=== PATIENT | female | born 1945 | race Caucasian/White ===

== ENCOUNTER 2017-06-14 14:17 | Emergency (ER) | payer OTHER, MEDICAID ==
[~2017-06-14] VITALS: Ht 154.9 cm; Wt 55.0 kg
[2017-06-14 14:51] VITALS: BP 113/57; PULSE 97; RESP 18; TEMP 99; O2SAT 96
[2017-06-14] MEDS ORDERED: AMLO5TAB2 PO (15:33)
[2017-06-14] MEDS ORDERED: TRIA1CAP6 PO (15:33)
[2017-06-14] MEDS ORDERED: LEXA10TA PO (15:36)
[2017-06-14] MEDS ORDERED: OMEP20TA93 PO (15:36)
[2017-06-14] MEDS ORDERED: ATOR20TA15 PO (15:36)
--- NOTE | 2017-06-14 15:45 | PD ---
HPI Chief Complaint: Psychiatric Symptoms Time Seen by Provider: 14:47 Travel History International Travel<30 days: No Contact w/Intl Traveler<30days: No Traveled to known affect area: No History of Present Illness HPI 72-year-old female presents under Renee act after making suicidal statements with social security dispatcher, per delores Johnston enforcement report. The report also states she suicidal because her last year and the patient is intoxicated. Patient reports daily alcohol use. She reports drinking wine today. She doesn't recall the statements made. She denies suicidal or homicidal ideation. Denies auditory or visual hallucinations. Denies illicit drug use. Denies tobacco use. Has no emergent medical complaints. Denies chest pain, shortness of breath, abdominal pain, vomiting, change in urine or stool. Her son lives here in [facility] and has him for support. No known relieving or aggravating factors. History of hypertension and GI issues. No other modifying factors or associated signs and symptoms. PFSH Past Medical History Asthma: No Blood Disorders: No Depression: Yes Cancer: No COPD: No Diminished Hearing: Yes Endocrine: No Gastrointestinal Disorders: Yes (colitis, hiatal hernia) GERD: Yes Genitourinary: No Hypertension: Yes Musculoskeletal: Yes (scoliosis) Neurologic: No Respiratory: No Influenza Vaccination: No Menopausal: Yes Past Surgical History Eye Surgery: Yes (cataract) Social History Alcohol Use: Yes (bottle of wine and some vodka each day) Tobacco Use: No Substance Use: No Allergies-Medications (Allergen,Severity, Reaction): Coded Allergies: No Known Allergies (Verified Allergy, Severe, 09/29/04) Reported Meds & Prescriptions Reported Meds & Active Scripts Active Reported Lexapro (Escitalopram Oxalate) 10 Mg Tab 10 Mg PO DAILY Omeprazole 20 Mg Tab 20 Mg PO DAILY Atorvastatin (Atorvastatin Calcium) 20 Mg Tab 20 Mg PO HS Dyrenium (Triamterene) 50 Mg Cap 50 Mg PO DAILY Amlodipine (Amlodipine Besylate) 5 Mg Tab 5 Mg PO DAILY Review of Systems Except as stated in HPI: all other systems reviewed are Neg Physical Exam Narrative GENERAL: Well-nourished, well-developed elderly, female patient, in no acute distress SKIN: Warm and dry. HEAD: Atraumatic. Normocephalic. EYES: Pupils equal and round. ENT: Mucosa pink and moist. NECK: Supple. Trachea midline. CARDIOVASCULAR: Regular rate and rhythm. No murmur appreciated. RESPIRATORY: No accessory muscle use. Clear to auscultation. Breath sounds equal bilaterally. GASTROINTESTINAL: Abdomen soft, non-tender, nondistended. Hepatic and splenic margins not palpable. Bowel sounds are active 4 quadrants. MUSCULOSKELETAL: No obvious deformities. No clubbing. No cyanosis. No edema. BACK: No CVA tenderness. NEUROLOGICAL: Awake and alert. Oriented 3. No obvious cranial nerve deficits. Motor grossly within normal limits. Normal speech. Moves all extremities. 5/5 strength to all extremities. PSYCHIATRIC: No delusional thought processes. No hallucinations. Data Data Last Documented VS Vital Signs Date Time Temp Pulse Resp B/P (MAP) Pulse Ox O2 Delivery O2 Flow Rate FiO2 06/14/17 15:04 (75) 06/14/17 14:51 99.0 97 18 96 Room Air Orders Orders Complete Blood Count With Diff (06/14/17 14:44) Comprehensive Metabolic Panel (06/14/17 14:44) Psych Screen (06/14/17 14:44) Drug Screen, Random Urine (06/14/17 14:44) Alcohol (Ethanol) (06/14/17 14:44) Salicylates (Aspirin) (06/14/17 14:44) Tylenol (Acetaminophen) (06/14/17 14:44) Urinalysis - C+S If Indicated (06/14/17 14:45) Diet Regular Basic (06/14/17 Dinner) MDM Medical Decision Making Medical Screen Exam Complete: Yes Emergency Medical Condition: Yes Medical Record Reviewed: Yes Differential Diagnosis Suicidal ideation, depression, alcohol intoxication, alcohol abuse, alcohol dependence, medical clearance for psychiatric evaluation Narrative Course Patient presents under a Renee act. Physical examination and vital signs are essentially unremarkable. Patient has no medical complaints to report. Psych screen has been ordered. If the laboratory results are unremarkable, the patient will be medically cleared for psychiatric evaluation and disposition. Diagnosis Primary Impression: Medical clearance for psychiatric admission Condition: Stable Gema Murillo Jun 14, 2017 15:45
[2017-06-14 16:09] LABS: AUTOMATED NEUTROPHIL # 6.1 TH/MM3 (1.8-7.7); BASOPHIL % 0.3 % (0.0-2.0); EOSINOPHIL % 0.6 % (0.0-4.0); HEMATOCRIT 34.5 % (35.0-46.0); HEMO FLAGS DIFF FINAL; LYMPH % 12.1 % (9.0-44.0); LYMPHOCYTE # 0.9 TH/MM3 (1.0-4.8); MEAN CELL VOLUME 79.7 FL (80.0-100.0); MEAN CORPUSCULAR HEMOGLOBIN 25.7 PG (27.0-34.0); MEAN CORPUSCULAR HGB CONC 32.3 % (32.0-36.0); MONO % 9.4 % (0.0-8.0); NEUT % 77.6 % (16.0-70.0); PLATELET COUNT 323 TH/MM3 (150-450); RED BLOOD COUNT 4.33 MIL/MM3 (4.00-5.30); RED CELL DISTRIBUTION WIDTH 18.9 % (11.6-17.2); WHITE BLOOD COUNT 7.8 TH/MM3 (4.0-11.0)
[2017-06-14 16:17] LABS: BLOOD, URINE NEG (NEG); COMMENT (UR) CULT NOT INDICATED; CULTURE IF INDICATED CULT NOT INDICATED; GLUCOSE,URINE NEG (NEG); HYALINE CAST, URINE 4 /lpf (RARE); KETONE, URINE NEG (NEG); NITRITE,URINE NEG (NEG); SQUAMOUS EPITHELIAL CELL URINE <1 /hpf (0-5); URINE COLOR LIGHT-YELLOW (YELLW/STRAW)
[2017-06-14 16:35] LABS: ANION GAP 7 MEQ/L (5-15); AST (GOT) 15 U/L (15-37); BICARBONATE 28.4 MEQ/L (21.0-32.0); BLOOD UREA NITROGEN 8 MG/DL (7-18); CHLORIDE 102 MEQ/L (98-107); GLOMERULAR FILTRATION RATE 62 ML/MIN (>89); POTASSIUM 3.4 MEQ/L (3.5-5.1); SODIUM (NA) 137 MEQ/L (136-145)
[2017-06-14 16:38] LABS: ALCOHOL 75 MG/DL (0-5); ALKALINE PHOSPHATASE 78 U/L (45-117); ALT (GPT) 23 U/L (10-53); TOTAL BILIRUBIN ADULT 0.6 MG/DL (0.2-1.0)
[2017-06-14 16:54] LABS: ACETAMINOPHEN LESS THAN 2.0 MCG/ML (10.0-30.0)
[2017-06-14 18:38] VITALS: BP 141/64; PULSE 94; RESP 18; O2SAT 96
[2017-06-14 22:00] VITALS: BP 146/70; PULSE 88; RESP 16; TEMP 99.2; O2SAT 95
--- NOTE | 2017-06-14 22:39 | PD ---
History of Present Illness Chief Complaint: Psychiatric Symptoms Time Seen by Provider: 22:00 Travel History International Travel<30 Days: No Contact w/Intl Traveler<30days: No Known affected area: No Legal Status Legal Status: Renee Act Renee Act Signed By: Negro Hamilton History of Present Illness: History of Present Illness HPI 72-year-old female who presents under Renee act initiated by law enforcement. The Renee act alleges that the patient made suicidal statements to a Social financial aids officer while they were talking on the telephone. When the officer arrived at her house he found her to be intoxicated. The patient on arrival to the ED had a blood alcohol level of 75. She was monitored in secure environment and presented no behavioral concerns and no suicidality. Electronic medical record is reviewed. The patient has one previous admission to the psychiatric unit in 2004. At that time she was placed under Renee act and was intoxicated as well. Patient is seen and examined. She is alert, oriented, calm and cooperative female dressed in [facility] with appropriate hygiene. She is clinically sober. Her gait is stable, there is no tremors or any other signs of withdrawal. Her speech is clear, goal-directed. There is no psychosis, no edith or hypomania. She tells me she has been feeling depressed since her approximately 1 year ago. Patient reports fair sleep, fair appetite, feeling level of energy. She denies any suicidal or homicidal ideation, intent or plan. She moved to a new neighborhood and has no friends there. She is also experiencing financial stress due to being unable to claim benefits from the Social Security office. She has lost her immigration papers and therefore has had to hire a project administrator to help her in this process. Patient admits that she had been drinking and reports that she drinks about 3 times per week and usually finishes a bottle of wine. She had been sober for the last 15 months and had been active in AA. With the patient's verbal consent to have contacted her son Mr. Dwight Metzger at [phone]. He confirms that information that the patient has provided. He has no concerns if his mother were to be discharge. PFSH Past Medical History Asthma: No Blood Disorders: No Depression: Yes Cancer: No COPD: No Diminished Hearing: Yes Endocrine: No Gastrointestinal Disorders: Yes (colitis, hiatal hernia) GERD: Yes Genitourinary: No Hypertension: Yes Musculoskeletal: Yes (scoliosis) Neurologic: No Respiratory: No Influenza Vaccination: No Menopausal: Yes Past Surgical History Eye Surgery: Yes (cataract) Psychiatric History Psychiatric History Hx Psychiatric Treatment: 1 previous psychiatric admission at [facility] in 2004. Patient has also been to [facility] under a Renee act. Currently patient is taking antidepressant medication. History of Inpatient Treatment: Yes ([facility] and [facility]) Social History Hx Alcohol Use: Yes (bottle of wine and some vodka each day) Hx Tobacco Use: No Hx Substance Use: No Substance Use Type: Alcohol Hx of Substance Use Treatment: Yes (patient reports she has been active in for several years.) Family Psychiatric History Patient reports she has a positive history of alcoholism both on her father's and mother's side. Allergies-Medications (Allergen,Severity, Reaction): Coded Allergies: No Known Allergies (Verified Allergy, Severe, 09/29/04) Reported Meds & Prescriptions Reported Meds & Active Scripts Active Reported Lexapro (Escitalopram Oxalate) 10 Mg Tab 10 Mg PO DAILY Omeprazole 20 Mg Tab 20 Mg PO DAILY Atorvastatin (Atorvastatin Calcium) 20 Mg Tab 20 Mg PO HS Dyrenium (Triamterene) 50 Mg Cap 50 Mg PO DAILY Amlodipine (Amlodipine Besylate) 5 Mg Tab 5 Mg PO DAILY Review of Systems Psychiatric: COMPLAINS OF: Depression Mental Status Examination Appearance: Appropriate Consciousness: Alert Orientation: x4 Motor Activity: Normal gait Speech: Unremarkable Language: Adequate Fund of Knowledge: Adequate Attention and Concentration: Adequate Memory: Unremarkable Mood: Appropriate Affect: Appropriate Thought Process & Associations: Intact Thought Content: Appropriate Hallucination Type: None Delusion Type: None Suicidal Ideation: No Suicidal Plan: No Suicidal Intention: No Homicidal Ideation: No Homicidal Plan: No Homicidal Intention: No Insight: Adequate Judgment: Adequate [facility] Medical Decision Making Assessment/Plan 72-year-old female with history of alcohol abuse and depression who presents to [facility] under a Renee act initiated by law enforcement. The report alleges that while having a conversation with an officer from the Social Security office she verbalized suicidal ideation. The patient denies any current suicidal or homicidal ideation, intent or plan. She denies remembering that she said anything about wanting to hurt herself. She acknowledges she is very frustrated with the process of trying to get her benefits. The patient at this time is future oriented. She expresses her intent to engage once again with AA and plans on attending meetings upon discharge. She has adequate protective factors including her family and a new [id number] grand baby. Patient also reports she has a small dog that she cares for at home. At this time the patient does not meet criteria for inpatient treatment. She does not meet criteria for Renee act as there is no evidence of unstable mental illness. I have counseled her at length regarding the negative effects of alcohol including increase in symptoms of depression. Patient is to follow-up with her outpatient provider. BA lifted. Psychiatrically clear for discharge. Orders Orders Complete Blood Count With Diff (06/14/17 14:44) Comprehensive Metabolic Panel (06/14/17 14:44) Psych Screen (06/14/17 14:44) Drug Screen, Random Urine (06/14/17 14:44) Alcohol (Ethanol) (06/14/17 14:44) Salicylates (Aspirin) (06/14/17 14:44) Tylenol (Acetaminophen) (06/14/17 14:44) Urinalysis - C+S If Indicated (06/14/17 14:45) Diet Regular Basic (06/14/17 Dinner) Results Vital Signs Date Time Temp Pulse Resp B/P (MAP) Pulse Ox O2 Delivery O2 Flow Rate FiO2 06/14/17 22:00 99.2 88 16 146/70 (95) 95 Room Air 06/14/17 18:38 94 18 141/64 (89) 96 Room Air 06/14/17 15:04 (75) 06/14/17 14:51 99.0 97 18 113/57 (75) 96 Room Air Laboratory Tests Test 06/14/17 15:39 06/14/17 15:45 White Blood Count 7.8 Red Blood Count 4.33 Hemoglobin 11.1 Hematocrit 34.5 Mean Corpuscular Volume 79.7 Mean Corpuscular Hemoglobin 25.7 Mean Corpuscular Hemoglobin Concent 32.3 Red Cell Distribution Width 18.9 Platelet Count 323 Mean Platelet Volume 7.5 Neutrophils (%) (Auto) 77.6 Lymphocytes (%) (Auto) 12.1 Monocytes (%) (Auto) 9.4 Eosinophils (%) (Auto) 0.6 Basophils (%) (Auto) 0.3 Neutrophils # (Auto) 6.1 Lymphocytes # (Auto) 0.9 Monocytes # (Auto) 0.7 Eosinophils # (Auto) 0.0 Basophils # (Auto) 0.0 CBC Comment DIFF FINAL Differential Comment Blood Urea Nitrogen 8 Creatinine 0.90 Random Glucose 137 Total Protein 7.9 Albumin 3.9 Calcium Level 8.7 Alkaline Phosphatase 78 Aspartate Amino Transf (AST/SGOT) 15 Alanine Aminotransferase (ALT/SGPT) 23 Total Bilirubin 0.6 Sodium Level 137 Potassium Level 3.4 Chloride Level 102 Carbon Dioxide Level 28.4 Anion Gap 7 Estimat Glomerular Filtration Rate 62 Salicylates Level LESS THAN 1.7 Acetaminophen Level LESS THAN 2.0 Ethyl Alcohol Level 75 Urine Color LIGHT-YELLOW Urine Turbidity CLEAR Urine pH 7.0 Urine Specific [place] 1.006 Urine Protein NEG Urine Glucose (UA) NEG Urine Ketones NEG Urine Occult Blood NEG Urine Nitrite NEG Urine Bilirubin NEG Urine Urobilinogen LESS THAN 2.0 Urine Leukocyte Esterase SMALL Urine RBC LESS THAN 1 Urine WBC 1 Urine Squamous Epithelial Cells <1 Urine Amorphous Sediment RARE Urine Hyaline Casts 4 Microscopic Urinalysis Comment CULT NOT INDICATED Urine Opiates Screen NEG Urine Barbiturates Screen NEG Urine Amphetamines Screen NEG Urine Benzodiazepines Screen NEG Urine Cocaine Screen NEG Urine Cannabinoids Screen NEG Diagnosis Primary Impression: Medical clearance for psychiatric admission Additional Impression: Alcohol dependence with alcohol-induced mood disorder Psychiatrically Cleared: Yes Med/ Other Pt Specific Info: No Change to Meds Disposition: 01 DISCHARGE HOME Condition: Stable Problem Qualifiers Marie Florian PROGRAM SUPPORT CLERK Jun 14, 2017 22:39
--- NOTE | 2017-06-14 23:10 | PD ---
Physical Exam Date Seen by Provider: Jun 14, 2017 Time Seen by Provider: 23:08 Data Data Last Documented VS Vital Signs Date Time Temp Pulse Resp B/P (MAP) Pulse Ox O2 Delivery O2 Flow Rate FiO2 06/14/17 22:00 99.2 88 16 146/70 (95) 95 Room Air Orders Orders Complete Blood Count With Diff (06/14/17 14:44) Comprehensive Metabolic Panel (06/14/17 14:44) Psych Screen (06/14/17 14:44) Drug Screen, Random Urine (06/14/17 14:44) Alcohol (Ethanol) (06/14/17 14:44) Salicylates (Aspirin) (06/14/17 14:44) Tylenol (Acetaminophen) (06/14/17 14:44) Urinalysis - C+S If Indicated (06/14/17 14:45) Diet Regular Basic (06/14/17 Dinner) Ed Discharge Order (06/14/17 23:11) Labs Laboratory Tests Test 06/14/17 15:39 06/14/17 15:45 White Blood Count 7.8 TH/MM3 Red Blood Count 4.33 MIL/MM3 Hemoglobin 11.1 GM/DL Hematocrit 34.5 % Mean Corpuscular Volume 79.7 FL Mean Corpuscular Hemoglobin 25.7 PG Mean Corpuscular Hemoglobin Concent 32.3 % Red Cell Distribution Width 18.9 % Platelet Count 323 TH/MM3 Mean Platelet Volume 7.5 FL Neutrophils (%) (Auto) 77.6 % Lymphocytes (%) (Auto) 12.1 % Monocytes (%) (Auto) 9.4 % Eosinophils (%) (Auto) 0.6 % Basophils (%) (Auto) 0.3 % Neutrophils # (Auto) 6.1 TH/MM3 Lymphocytes # (Auto) 0.9 TH/MM3 Monocytes # (Auto) 0.7 TH/MM3 Eosinophils # (Auto) 0.0 TH/MM3 Basophils # (Auto) 0.0 TH/MM3 CBC Comment DIFF FINAL Differential Comment Blood Urea Nitrogen 8 MG/DL Creatinine 0.90 MG/DL Random Glucose 137 MG/DL Total Protein 7.9 GM/DL Albumin 3.9 GM/DL Calcium Level 8.7 MG/DL Alkaline Phosphatase 78 U/L Aspartate Amino Transf (AST/SGOT) 15 U/L Alanine Aminotransferase (ALT/SGPT) 23 U/L Total Bilirubin 0.6 MG/DL Sodium Level 137 MEQ/L Potassium Level 3.4 MEQ/L Chloride Level 102 MEQ/L Carbon Dioxide Level 28.4 MEQ/L Anion Gap 7 MEQ/L Estimat Glomerular Filtration Rate 62 ML/MIN Salicylates Level LESS THAN 1.7 MG/DL Acetaminophen Level LESS THAN 2.0 MCG/ML Ethyl Alcohol Level 75 MG/DL Urine Color LIGHT-YELLOW Urine Turbidity CLEAR Urine pH 7.0 Urine Specific [place] 1.006 Urine Protein NEG mg/dL Urine Glucose (UA) NEG mg/dL Urine Ketones NEG mg/dL Urine Occult Blood NEG Urine Nitrite NEG Urine Bilirubin NEG Urine Urobilinogen LESS THAN 2.0 MG/DL Urine Leukocyte Esterase SMALL Urine RBC LESS THAN 1 /hpf Urine WBC 1 /hpf Urine Squamous Epithelial Cells <1 /hpf Urine Amorphous Sediment RARE Urine Hyaline Casts 4 /lpf Microscopic Urinalysis Comment CULT NOT INDICATED Urine Opiates Screen NEG Urine Barbiturates Screen NEG Urine Amphetamines Screen NEG Urine Benzodiazepines Screen NEG Urine Cocaine Screen NEG Urine Cannabinoids Screen NEG MDM Medical Record Reviewed: Yes Supervised Visit with PEARL: Yes Interpretation(s) Laboratory Tests Test 06/14/17 15:39 06/14/17 15:45 White Blood Count 7.8 TH/MM3 Red Blood Count 4.33 MIL/MM3 Hemoglobin 11.1 GM/DL Hematocrit 34.5 % Mean Corpuscular Volume 79.7 FL Mean Corpuscular Hemoglobin 25.7 PG Mean Corpuscular Hemoglobin Concent 32.3 % Red Cell Distribution Width 18.9 % Platelet Count 323 TH/MM3 Mean Platelet Volume 7.5 FL Neutrophils (%) (Auto) 77.6 % Lymphocytes (%) (Auto) 12.1 % Monocytes (%) (Auto) 9.4 % Eosinophils (%) (Auto) 0.6 % Basophils (%) (Auto) 0.3 % Neutrophils # (Auto) 6.1 TH/MM3 Lymphocytes # (Auto) 0.9 TH/MM3 Monocytes # (Auto) 0.7 TH/MM3 Eosinophils # (Auto) 0.0 TH/MM3 Basophils # (Auto) 0.0 TH/MM3 CBC Comment DIFF FINAL Differential Comment Blood Urea Nitrogen 8 MG/DL Creatinine 0.90 MG/DL Random Glucose 137 MG/DL Total Protein 7.9 GM/DL Albumin 3.9 GM/DL Calcium Level 8.7 MG/DL Alkaline Phosphatase 78 U/L Aspartate Amino Transf (AST/SGOT) 15 U/L Alanine Aminotransferase (ALT/SGPT) 23 U/L Total Bilirubin 0.6 MG/DL Sodium Level 137 MEQ/L Potassium Level 3.4 MEQ/L Chloride Level 102 MEQ/L Carbon Dioxide Level 28.4 MEQ/L Anion Gap 7 MEQ/L Estimat Glomerular Filtration Rate 62 ML/MIN Salicylates Level LESS THAN 1.7 MG/DL Acetaminophen Level LESS THAN 2.0 MCG/ML Ethyl Alcohol Level 75 MG/DL Urine Color LIGHT-YELLOW Urine Turbidity CLEAR Urine pH 7.0 Urine Specific [place] 1.006 Urine Protein NEG mg/dL Urine Glucose (UA) NEG mg/dL Urine Ketones NEG mg/dL Urine Occult Blood NEG Urine Nitrite NEG Urine Bilirubin NEG Urine Urobilinogen LESS THAN 2.0 MG/DL Urine Leukocyte Esterase SMALL Urine RBC LESS THAN 1 /hpf Urine WBC 1 /hpf Urine Squamous Epithelial Cells <1 /hpf Urine Amorphous Sediment RARE Urine Hyaline Casts 4 /lpf Microscopic Urinalysis Comment CULT NOT INDICATED Urine Opiates Screen NEG Urine Barbiturates Screen NEG Urine Amphetamines Screen NEG Urine Benzodiazepines Screen NEG Urine Cocaine Screen NEG Urine Cannabinoids Screen NEG Differential Diagnosis . Narrative Course The patient has been medically cleared earlier today by Viktoria Calderon .[employer] The patient has been seen by Marie the psych nurse practitioner. The patient' s Renee act has been lifted. She does not believe the patient is a threat to herself or others. She does not need inpatient treatment. The patient is given outpatient treatment information. This is medical clearance for psychiatric admission. Diagnosis Primary Impression: Medical clearance for psychiatric admission Patient Instructions: General Instructions Departure Forms: Tests/Procedures Additional Instruction: Rest. Increase fluids. Follow-up with the recommendations of the psych nurse practitioner. Return to the ER if any problems. Disposition: 01 DISCHARGE HOME Condition: Stable Alan Clinton Jun 14, 2017 23:10
== END 2017-06-14 23:20 | disposition home or self-care (01) ==
LOC: NEPJ 14:17
DX: Z02.89 Encounter for other administrative examinations (principal); F10.24 Alcohol dependence with alcohol-induced mood disorder; I10 Essential (primary) hypertension; F32.9 Major depressive disorder, single episode, unspecified; K21.9 Gastro-esophageal reflux disease without esophagitis; Z79.899 Other long term (current) drug therapy; Z87.39 Personal history of other diseases of the musculoskeletal system and connective tissue; Z87.19 Personal history of other diseases of the digestive system; Y90.3 Blood alcohol level of 60-79 mg/100 ml
CPT/HCPCS: 80053; 80307; 81001; 85025; 99285

== ENCOUNTER → 2017-08-06 | Outpatient (CLI) | payer OTHER ==
[~2017-08-06] MED LIST: AMLO5TAB2 PO; ATOR20TA15 PO; LEXA10TA PO; OMEP20TA93 PO; TRIA1CAP6 PO
--- NOTE | 2017-08-06 19:13 | EKG ---
Date Performed: 08/06/2017 Time Performed: 11:50:00 PTAGE: 72 years EKG: Sinus arrhythmia. Since previous tracing, no significant change noted Normal ECG PREVIOUS TRACING : 10/01/2004 14.46 DOCTOR: Philip Swift Interpretating Date/Time 08/06/2017 19:11:55
== END ==
LOC: HCAV 11:39
DX: I49.9 Cardiac arrhythmia, unspecified (principal)
CPT/HCPCS: 93005